=== PATIENT | female | born 1980 | race Caucasian/White ===

== ENCOUNTER 2021-09-12 11:55 | Emergency (ER) | payer MEDICAID ==
[~2021-09-12] VITALS: Ht 172.7 cm; Wt 74.8 kg
[2021-09-12 12:55] VITALS: BP_SYST 137
--- NOTE | 2021-09-12 13:00 | NUR ---
pt placed in bed 5. report to Clarke FUNES.
[2021-09-12] MEDS ORDERED: KETOROLAC TROMETHAMINE 60 MG/2 ML VIAL IM ONE (13:15)
[2021-09-12] MEDS ORDERED: HYDROcodone/ACETAMIN 10-325 MG TAB PO ONE (13:15)
[2021-09-12] MEDS ORDERED: SOM350 PO (13:51)
[2021-09-12] MEDS ORDERED: IBUP-1969 PO (13:51)
--- NOTE | 2021-09-12 16:16 | NUR ---
[employer] [facility] in [facility] - 09/12/21 at 1617 by [id number] AT BEDSIDE
--- NOTE | 2021-09-12 16:17 | NUR ---
PT ELOPED WITHOUT SIGNING PAPERWORK, TRIAGE STATED PT LEFT
== END 2021-09-12 16:19 | disposition home or self-care (01) ==
LOC: SED 11:55
DX: M54.12 Radiculopathy, cervical region (principal); M25.511 Pain in right shoulder
CPT/HCPCS: 72040-TC; 73030; 99284

== ENCOUNTER 2023-10-29 14:05 | Emergency (ER) | payer MEDICAID ==
[~2023-10-29] VITALS: Ht 172.7 cm; Wt 77.1 kg
[~2023-10-29 14:05] MED LIST: CEPH-548 PO; IBUP-1969 PO; NAPR-1172 PO; SOM350 PO
[2023-10-29 14:16] VITALS: BP_SYST 121; PULSE 107; RESP 20; TEMP 96.4; O2SAT 100
[2023-10-29] MEDS: HYDROcodone/ACETAMIN 5-325 MG TAB (NORCO/ VICODIN) PO ONE (15:16)
[2023-10-29 15:42] VITALS: BP_SYST 121; PULSE 107; RESP 20; TEMP 96.4; O2SAT 100
== END 2023-10-29 15:44 | disposition home or self-care (01) ==
LOC: SED 14:05
DX: M25.512 Pain in left shoulder (principal); M25.511 Pain in right shoulder; R20.0 Anesthesia of skin; Z88.6 Allergy status to analgesic agent; Z79.899 Other long term (current) drug therapy; Z79.2 Long term (current) use of antibiotics
CPT/HCPCS: 73030; 99283